=== PATIENT | male | born 1945 | race Caucasian/White ===

== ENCOUNTER 2019-08-24 11:48 | Emergency (ER) | payer MEDICARE, OTHER ==
--- NOTE | 2019-08-24 14:27 | ER Document Report ---
ED Medical Screen (RME) - General Chief Complaint: General Weakness Stated Complaint: DIZZINESS Time Seen by Provider: 08/24/19 14:18 Mode of Arrival: Wheelchair Information source: Patient, Relative Notes: 73-year-old male with history of bypass presents emergency department with altered mental status, extreme weight loss in the last month decreased vision nodules popping up all over his body. Sister reports that he has a history of bypass surgery. Reports his vision is decreased so much she could not see to dial her. He was taken to the retail coverage merchandiser lead and they were worried about di abetes. Sister reports a few years ago he had a very high white count was instructed to follow-up with oncology but he never did. I have greeted and performed a rapid initial assessment of this patient. A comprehensive ED assessment and evaluation of the patient, analysis of test results and completion of the medical decision making process will be conducted by additional ED providers. Dictation of this chart was performed using voice recognition software; therefore, there may be some unintended grammatical errors. TRAVEL OUTSIDE OF THE [place] IN LAST 30 DAYS: No - Related Data Allergies/Adverse Reactions: No Known Allergies Allergy (Verified 09/21/15 14:24) Past Medical History - Past Medical History Cardiac Medical History: Reports: Hx Coronary Artery Disease Neurological Medical History: Denies: Hx Seizures Musculoskeltal Medical History: Reports Hx Arthritis Psychiatric Medical History: Reports: Hx Anxiety, Hx Depression, Hx Post Traumatic Stress Disorder Past Surgical History: Reports: Hx Abdominal Surgery - small bowel resection for perforation due to trauma, Hx Appendectomy, Hx Cardiac Surgery - bypass, Hx Coronary Artery Bypass Graft, Hx Herniorrhaphy - right inguinal hernia repair during sb resection for his trauma last week. Physical Exam - Vital signs Vitals: Temp Pulse Resp BP Pulse Ox 98.3 F 101 H 18 143/62 H 95 08/24/19 11:55 08/24/19 11:55 08/24/19 11:55 08/24/19 11:55 08/24/19 11:55 Course - Vital Signs Vital signs: Temp Pulse Resp BP Pulse Ox 98.3 F 101 H 18 143/62 H 95 08/24/19 14:18 08/24/19 11:55 08/24/19 14:18 08/24/19 11:55 08/24/19 14:18
--- NOTE | 2019-08-24 15:18 | RADIOLOGY REPORT (SQ) ---
EXAM DESCRIPTION: CHEST 2 VIEWS COMPLETED DATE/TIME: 08/24/2019 3:09 pm REASON FOR STUDY: weight loss COMPARISON: 09/21/2015 EXAM PARAMETERS: NUMBER OF VIEWS: two views TECHNIQUE: Digital Frontal and Lateral radiographic views of the chest acquired. RADIATION DOSE: NA LIMITATIONS: none FINDINGS: LUNGS AND PLEURA: Minimal blunting of the right CP angle. No acute opacities. MEDIASTINUM AND HILAR STRUCTURES: No masses or contour abnormalities. HEART AND VASCULAR STRUCTURES: CABG hardware. Normal size heart without failure. BONES: Sternal wires. HARDWARE: None in the chest. OTHER: No other significant finding. IMPRESSION: Possible small right pleural effusion. Otherwise unremarkable chest x-ray. TECHNICAL DOCUMENTATION: JOB ID: [id number] [employer]- All Rights Reserved Reading location - IP/workstation name: [email or web address]
--- NOTE | 2019-08-24 15:25 | RADIOLOGY REPORT (SQ) ---
EXAM DESCRIPTION: CT HEAD WITHOUT COMPLETED DATE/TIME: 08/24/2019 3:16 pm REASON FOR STUDY: ams COMPARISON: 09/13/2015. TECHNIQUE: Axial images acquired through the brain without intravenous contrast. Images reviewed wi th bone, brain and subdural windows. Additional sagittal and coronal reconstructions were generated. Images stored on PACS. All CT scanners at this facility use dose modulation, iterative reconstruction, and/or weight based d osing when appropriate to reduce radiation dose to as low as reasonably achievable (ALARA). [facility]: Dose Right [facility]: CareDose [facility]: Dose Right [facility]: Teradose 4D [facility]: [employer] RADIATION DOSE: CT Rad equipment meets quality standard of care and radiation dose reduction techniq ues were employed. CTDIvol: 53.2 mGy. DLP: 1044 mGy-cm. mGy. LIMITATIONS: None. FINDINGS: VENTRICLES: Normal size and contour. CEREBRUM: No masses. No hemorrhage. No midline shift. No evidence for acute infarction. Normal gra y/white matter differentiation. No areas of low density in the white matter. CEREBELLUM: No masses. No hemorrhage. No alteration of density. No evidence for acute infarction. EXTRAAXIAL SPACES: No fluid collections. No masses. ORBITS AND GLOBE: No intra- or extraconal masses. Normal contour of globe without masses. CALVARIUM: No fracture. PARANASAL SINUSES: Mucous membrane thickening in the left maxillary sinus. SOFT TISSUES: No mass or hematoma. OTHER: No other significant finding. IMPRESSION: NORMAL BRAIN CT WITHOUT CONTRAST. EVIDENCE OF ACUTE STROKE: NO. COMMENT: Quality ID # [id number]: Final reports with documentation of one or more dose reduction techniques (e.g., Automated exposure control, adjustment of the mA and/or kV according to patient size, use of iterative reconstruction technique) TECHNICAL DOCUMENTATION: JOB ID: [id number] [employer]- All Rights Reserved Reading location - IP/workstation name: [email or web address]
[2019-08-24 15:37] LABS: APPEARANCE,URINE CLEAR; BILIRUBIN,URINE NEGATIVE (NEGATIVE); COLOR,URINE YELLOW; GLUCOSE, URINE NEGATIVE (NEGATIVE); KETONES,URINE NEGATIVE (NEGATIVE); LEUKOCYTE ESTERASE,URINE NEGATIVE (NEGATIVE); NITRITE,URINE NEGATIVE (NEGATIVE); PROTEIN,URINE NEGATIVE (NEGATIVE); URINE SPECIFIC GRAVITY 1.016; UROBILINOGEN,URINE NEGATIVE mg/dL (<2.0)
[2019-08-24 15:49] LABS: ALBUMIN 3.8 g/dL (3.5-5.0); ALKALINE PHOSPHATASE 197 U/L (38-126); ANION GAP 10 (5-19); ASPARTATE AMINO TRANSFERASE 43 U/L (17-59); BILIRUBIN,DIRECT 0.3 mg/dL (0.0-0.4); BILIRUBIN,TOTAL 2.1 mg/dL (0.2-1.3); BLOOD UREA NITROGEN 22 mg/dL (7-20); CALCIUM 8.8 mg/dL (8.4-10.2); CARBON DIOXIDE 25 mmol/L (22-30); CHLORIDE 105 mmol/L (98-107); GLUCOSE 123 mg/dL (75-110); POTASSIUM 4.8 mmol/L (3.6-5.0); TOTAL PROTEIN 6.5 g/dL (6.3-8.2)
[2019-08-24 15:59] LABS: CREATINE KINASE < 20 U/L (55-170)
--- NOTE | 2019-08-24 17:55 | ER Document Report ---
ED General - General Chief Complaint: General Weakness Stated Complaint: DIZZINESS Time Seen by Provider: 08/24/19 14:18 Primary Care Provider: GEO,ERWIN [Primary Care Provider] - Follow up as needed Mode of Arrival: Wheelchair TRAVEL OUTSIDE OF THE [place] IN LAST 30 DAYS: No - HPI Notes: Patient is a very pleasant 73-year-old gentleman who presents to the emergency department for evaluation. He is a slightly difficult historian. The patient states he has been dizzy over the last month. It seems to be worsening through the night, it gets better throughout the day with activity. He states that when he sees someone walked by him, it appears as if there are "repeat images chasing them." He states it seems as if he is on a moving ship. He is also been having visual changes. He states that he cannot see the numbers on his phone to dial for his sister, who is his primary helper. He saw an electrician deck. He was told that he has small "bleeders" in the back of his eye, but no signs of macular degeneration. He had a very mild change in his visual prescription, but no other abnormalities noted per sister. It was also reported that the patient had a very high white blood cell count 2 years ago. He was evidently referred onto [facility], but this appointment was never made. He has not had any follow-up since then. Patient states he has been having pain in his mid to lower back, as well as his right shoulder. It has been ongoing for the last several weeks as well. Patient's daughter also states that he looks very gaunt, has lost a significant amount of weight over the last month. - Related Data Allergies/Adverse Reactions: No Known Allergies Allergy (Verified 09/21/15 14:24) Past Medical History - General Information source: Patient, Relative - Social History Smoking Status: Former Smoker Frequency of alcohol use: Heavy Family History: Reviewed & Not Pertinent Patient has suicidal ideation: No Patient has homicidal ideation: No - Past Medical History Cardiac Medical History: Reports: Hx Coronary Artery Disease, Hx Hypercholest erolemia, Hx Hypertension Neurological Medical History: Denies: Hx Seizures Musculoskeletal Medical History: Reports Hx Arthritis Psychiatric Medical History: Reports: Hx Anxiety, Hx Depression, Hx Post Traumatic Stress Disorder Past Surgical History: Reports: Hx Abdominal Surgery - small bowel resection for perforation due to trauma, Hx Appendectomy, Hx Cardiac Surgery - bypass, Hx Coronary Artery Bypass Graft, Hx Herniorrhaphy - right inguinal hernia repair during sb resection for his trauma last week. - Immunizations Hx Pneumococcal Vaccination: 09/09/08 Review of Systems - Review of Systems Constitutional: See HPI EENT: No symptoms reported Cardiovascular: No symptoms reported Respiratory: No symptoms reported Gastrointestinal: No symptoms reported Genitourinary: No symptoms reported Musculoskeletal: See HPI Skin: No symptoms reported Hematologic/Lymphatic: See HPI Neurological/Psychological: See HPI Physical Exam - Vital signs Vitals: Temp Pulse Resp BP Pulse Ox 98.3 F 101 H 18 143/62 H 95 08/24/19 11:55 08/24/19 11:55 08/24/19 11:55 08/24/19 11:55 08/24/19 11:55 - Notes Notes: This is a very pleasant 73-year-old male who appears his stated age in no acute distress. Vital signs reviewed, please refer to chart. Head is normocephalic, atraumatic. Pupils equal round, reactive to light. Oral mucosa is moist. Neck is supple without meningismus. Examination of the back of the neck yields a 3 x 4 cm rubbery mobile mass, on the left aspect of the posterior spine, nontender, no overlying skin changes. Heart is regular rate and rhythm. Lungs are clear to auscultation bilaterally. Abdomen is soft, nontender, normoactive bowel sounds throughout. Hepatomegaly and splenomegaly palpable on exam. Extremities without cyanosis, clubbing. Posterior calves are nontender. Peripheral pulses are equal. Skin is warm and dry. Patient is awake, alert, neurological exam is nonfocal. Course - Re-evaluation Re-evalutation: 08/24/19 21:19 Patient presents emergency department for evaluation. He had multiple imaging and laboratory investigation studies performed. Patient CT scan of his head was found to be unremarkable. I did order CT scan of the abdomen pelvis given his hepatosplenomegaly on exam. Marked splenomegaly but no other abnormalities were found. His white blood cell count did eventually come back at 585,000. I spoke with Dr. Hung at 1940. She was concerned about the significant leukocytosis, the possibility of an acute lymphocytic leukemia, and recommended transfer for possible leukopheresis given his neurological symptoms. I then spoke with Dr. Rene, hematology/oncology fellow at [facility] at 2105. She agrees that the patient would be best cared for at a tertiary center. She asked that magnesium, LDH, uric acid, and phosphorus levels be added. She also recommends hydration. Awaiting phone call from the hospitalist. 08/24/19 21:[address] Roberts, hospitalist at [facility]. He accepted the patient to the oncology hospitalist service. 08/24/19 23:49 I was later notified that [facility] would not have a bed for over 24 hours. We contacted [facility]. I spoke with nurse practitioner Carina, who accepted the patient on behalf of Dr. Flood. 08/25/19 01:57 Patient is stable. [facility] is here for transport, patient is medically cleared for transfer to [facility] for further evaluation. - Vital Signs Vital signs: Temp Pulse Resp BP Pulse Ox 98.1 F 101 H 17 101/83 95 08/25/19 00:00 08/24/19 11:55 08/25/19 01:02 08/25/19 01:02 08/25/19 01:02 - Laboratory Result Diagrams: 08/24/19 17:30 08/24/19 14:34 Laboratory results interpreted by me: 08/24/19 08/24/19 08/24/19 14:34 14:34 17:30 WBC 585.8 H* RBC 4.12 L Hgb 10.6 L Hct 35.9 L MCH 25.7 L MCHC 29.5 L RDW 18.1 H Plt Count 136 L Seg Neuts % (Manual) 2 L Lymphocytes % (Manual) 86 H Abs Neuts (Manual) 11.7 H Abs Lymphs (Manual) 556.5 H Abs Monocytes (Manual) 17.6 H BUN 22 H Glucose 123 H Uric Acid Magnesium Total Bilirubin 2.1 H Alkaline Phosphatase 197 H Creatine Kinase < 20 L Urine Blood SMALL H Urine Ascorbic Acid 40 H 08/24/19 22:10 WBC RBC Hgb Hct MCH MCHC RDW Plt Count Seg Neuts % (Manual) Lymphocytes % (Manual) Abs Neuts (Manual) Abs Lymphs (Manual) Abs Monocytes (Manual) BUN Glucose Uric Acid 12.3 H Magnesium 2.5 H Total Bilirubin Alkaline Phosphatase Creatine Kinase Urine Blood Urine Ascorbic Acid - Diagnostic Test Radiology reviewed: Image reviewed, Reports reviewed Radiology results interpreted by me: 08/24/19 21:21 Chest X-Ray 12/16/19 14:23 IMPRESSION: Possible small right pleural effusion. Otherwise unremarkable chest x-ray. Head CT 08/24/19 14:24 IMPRESSION: NORMAL BRAIN CT WITHOUT CONTRAST. EVIDENCE OF ACUTE STROKE: NO. Abdomen/Pelvis CT 08/24/19 17:44 IMPRESSION: Massive splenomegaly. Multiple gallstones. Thyroid Ultrasound 08/24/19 17:57 IMPRESSION: Likely lipoma. 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 Flood [facility]errals: [facility] [Primary [facility]] - Follow up as needed
--- NOTE | 2019-08-24 19:07 | RADIOLOGY REPORT (SQ) ---
EXAM DESCRIPTION: CT ABD/PELVIS WITH IV ONLY COMPLETED DATE/TIME: 08/24/2019 6:55 pm REASON FOR STUDY: RUQ tenderness, hepatomegaly, elevated bilirubin COMPARISON: None. TECHNIQUE: CT scan of the abdomen and pelvis performed using helical scanning technique with dynamic intravenous contrast injection. No oral contrast. Images reviewed with lung, soft tissue, and bone windows. Reconstructed coronal and sagittal MPR images reviewed. Delayed images for evaluation of the urinary system also acquired. All images stored on PACS. All CT scanners at this facility use dose modulation, iterative reconstruction, and/or weight based d osing when appropriate to reduce radiation dose to as low as reasonably achievable (ALARA). [facility]: Dose Right [facility]: CareDose [facility]: Dose Right [facility]: Teradose 4D [facility]: [employer] CONTRAST TYPE AND DOSE: contrast/concentration: Isovue 350.00 mg/ml; Total Contrast Delivered: 79.0 ml; Total Saline Delivered: 68.0 ml RENAL FUNCTION: GFR > 60. RADIATION DOSE: CT Rad equipment meets quality standard of care and radiation dose reduction techniq ues were employed. CTDIvol: 6.2 - 8.5 mGy. DLP: 805 mGy-cm.. LIMITATIONS: None. FINDINGS: LOWER CHEST: No significant findings. No nodules or infiltrates. LIVER: Normal size. No masses. No dilated ducts. SPLEEN: Splenomegaly. 20 cm. Calcified granulomata. PANCREAS: No masses. No significant calcifications. No adjacent inflammation or peripancreatic fluid collections. Pancreatic duct not dilated. GALLBLADDER: Multiple gallstones. ADRENAL GLANDS: No significant masses or asymmetry. RIGHT KIDNEY AND URETER: No solid masses. No significant calcifications. No hydronephrosis or hyd roureter. LEFT KIDNEY AND URETER: No solid masses. No significant calcifications. No hydronephrosis or hydr oureter. AORTA AND VESSELS: No aneurysm. No dissection. Renal arteries, SMA, celiac without stenosis. RETROPERITONEUM: No retroperitoneal adenopathy, hemorrhage or masses. BOWEL AND PERITONEAL CAVITY: No masses or inflammatory changes. No free fluid or peritoneal masses. APPENDIX: Surgically absent. PELVIS: No mass. No free fluid. Normal bladder. ABDOMINAL WALL: No masses. No hernias. BONES: No significant or acute findings. OTHER: No other significant finding. IMPRESSION: Massive splenomegaly. Multiple gallstones. TECHNICAL DOCUMENTATION: JOB ID: [id number] Quality ID # [id number]: Final reports with documentation of one or more dose reduction techniques (e.g., Au tomated exposure control, adjustment of the mA and/or kV according to patient size, use of iterative reconstruction technique) 2010 [employer]- All Rights Reserved Reading location - IP/workstation name: [email or web address]
--- NOTE | 2019-08-24 19:21 | RADIOLOGY REPORT (SQ) ---
EXAM DESCRIPTION: U/S THYROID/SFT TISS HD NECK COMPLETED DATE/TIME: 08/24/2019 7:13 pm REASON FOR STUDY: mass left posterior neck COMPARISON: None. TECHNIQUE: Dynamic and static grayscale images acquired of the localized site of clinical concern an d recorded on PACS. Additional selected color Doppler and spectral images recorded. SITE OF CONCERN: Left posterior neck. Present 2 years. LIMITATIONS: None. FINDINGS: SKIN AND SUBCUTANEOUS TISSUES: 6.8 x 5.841.4 cm echogenic mass subcutaneous soft tissues o f the left neck. DEEP SOFT TISSUES/MUSCLES: No masses. No fluid collections. No edema. VASCULAR: No increased or decreased vascularity. No occlusions. OTHER: No other significant finding. 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 TECHNICAL DOCUMENTATION: JOB ID: [id number] [employer] All Rights Reserved Reading location - IP/workstation name: [email or web address]
[2019-08-24 19:38] LABS: RED BLOOD COUNT 4.12 10^6/uL (4.35-5.55); WHITE BLOOD COUNT 585.8 10^3/uL (4.0-10.5)
[2019-08-24 19:39] LABS: HEMATOCRIT 35.9 % (37.9-51.0); MEAN CORPUSCULAR HEMOGLOBIN 25.7 pg (27.0-33.4); MEAN CORPUSCULAR HGB CONC 29.5 g/dL (32.0-36.0); MEAN CORPUSCULAR VOLUME 87 fl (80-97); PLATELET COUNT 136 10^3/uL (150-450); RED CELL DISTRIBUTION WIDTH 18.1 % (11.5-14.0)
[2019-08-24 19:42] LABS: ABSOLUTE LYMPHOCYTES# (MANUAL) 556.5 10^3/uL (0.5-4.7); ABSOLUTE MONOCYTES # (MANUAL) 17.6 10^3/uL (0.1-1.4); BASOPHILS % (MANUAL) 0 % (0-2); EOSINOPHILS % (MANUAL) 0 % (0-6); MONOCYTES % (MANUAL) 3 % (3-13); SEGMENTED NEUTROPHILS % (MAN) 2 % (42-78); TOTAL CELLS COUNTED 100
[2019-08-24 19:43] LABS: ANISOCYTOSIS 1+; SMUDGE CELLS PRESENT
[2019-08-24 19:44] LABS: PLATELET COMMENT DECREASED
[2019-08-24 19:45] LABS: HEMOGLOBIN 10.6 g/dL (13.5-17.0); LYMPHOCYTES % (MANUAL) 86 % (13-45)
[2019-08-24] MEDS ORDERED: NORMAL SALINE 1000 ML 1,000 ML IV ONE ×2 (21:08)
[2019-08-24 22:50] LABS: PHOSPHORUS 3.9 mg/dL (2.5-4.5); URIC ACID 12.3 mg/dL (3.5-8.5)
--- NOTE | 2019-08-25 00:23 | EKG REPORT ---
SEVERITY:- ABNORMAL ECG - SINUS RHYTHM FIRST DEGREE AV BLOCK LEFT ATRIAL ABNORMALITY LEFT AXIS DEVIATION ABNORMAL T, CONSIDER ISCHEMIA, ANT-LAT LEADS CONSIDER INFERIOR LA : Confirmed by: Mireya Machado 25-Aug-2019 00:21:52
[2019-08-25 02:13] VITALS: BP 151/77
[2019-08-25 10:49] LABS: PATH REVIEW PATHOLOGIST REVIEWED
== END 2019-08-25 02:17 | disposition short-term general hospital (02) ==
LOC: ER 11:48
DX: R16.1 Splenomegaly, not elsewhere classified (principal); D72.820 Lymphocytosis (symptomatic); R42 Dizziness and giddiness; H53.9 Unspecified visual disturbance; K80.20 Calculus of gallbladder without cholecystitis without obstruction; M54.5 Low back pain; R63.4 Abnormal weight loss; M25.511 Pain in right shoulder; R22.1 Localized swelling, mass and lump, neck; I25.10 Atherosclerotic heart disease of native coronary artery without angina pectoris; I10 Essential (primary) hypertension; Z95.1 Presence of aortocoronary bypass graft; Z87.891 Personal history of nicotine dependence
CPT/HCPCS: 93005; 99285; 96360; 96361; 36415; 82550; 83615; 83735; 84100; 84550; 85025; 80053; 81001; 84484; 71046; 76536; 70450; 74177; 93010; J7030